=== PATIENT | male | born 1980 | race Caucasian/White ===

== ENCOUNTER 2022-09-30 15:33 | Inpatient (IN) | payer OTHER ==
[~2022-09-30] VITALS: Ht 172.7 cm; Wt 109.3 kg
[2022-09-30] MEDS ORDERED: DILT60TA PO (15:43)
[2022-09-30] MEDS ORDERED: HYDR12.55 PO (15:43)
[2022-09-30] MEDS ORDERED: OMEG10002 PO ×2 (15:43→22:20)
[2022-09-30 17:39] LABS: BLOOD UREA NITROGEN 21 MG/DL (9-23); CALCIUM LEVEL 9.8 MG/DL (8.5-10.1); CARBON DIOXIDE LEVEL 24 MMOL/L (20-31); CHLORIDE LEVEL 94 MMOL/L (98-107); CPK CREATINE PHOSPHOKINASE 1525 U/L (46-171); CREATININE FOR GFR 1.06 MG/DL (0.70-1.30); GLOMERULAR FILTRATION RATE > 60.0 (>60); GLUCOSE, FASTING 475 MG/DL (60-100); POTASSIUM SERUM 4.4 MMOL/L (3.5-5.1); SODIUM LEVEL 129 MMOL/L (136-145)
[2022-09-30] MEDS ORDERED: HumuLIN R (REGULAR) INSULIN (NovoLIN R) **100U/ML** PER UNIT IV ONE (17:40)
[2022-09-30] MEDS ORDERED: NS 1,000 ML IV ONE (17:40)
[2022-09-30 18:17] LABS: VENOUS HCO3 24.4 MEQ/L (23.0-27.0); VENOUS O2 SATURATION 97.4 % (60.0-80.0); VENOUS PARTIAL PRESSURE CO2 38.9 mmHg (38.0-50.0); VENOUS PARTIAL PRESSURE O2 97.2 mmHg (30.0-50.0); VENOUS PH 7.415 UNITS (7.330-7.430); VENOUS STANDARD HCO3 24.5 MEQ/L; VENOUS TOTAL CO2 25.6 MEQ/L (24.0-28.0)
[2022-09-30 18:26] LABS: BASO % 0.4 % (0.0-1.0); EOS # 0.1 10^3/uL (0.0-0.5); EOS % 1.8 % (0.0-3.0); HEMATOCRIT 46.7 % (42.0-52.0); HEMOGLOBIN 16.7 g/dl (13.5-17.5); LYMPH # 2.6 10^3/uL (1.5-5.0); LYMPH % 33.2 % (24.0-44.0); MEAN CORPUSCULAR HEMOGLOBIN 31.9 pg (27.0-33.0); MEAN CORPUSCULAR HGB CONC 35.8 g/dl (32.0-36.5); MEAN CORPUSCULAR VOLUME 89.1 fl (80.0-96.0); MONO # 0.4 10^3/uL (0.0-0.8); MONO % 5.6 % (2.0-8.0); NEUTROPHILS # 4.5 10^3/uL (1.5-8.5); NEUTROPHILS % 58.4 % (36.0-66.0); PLATELET COUNT, AUTOMATED 244 10^3/uL (150-450); RED BLOOD COUNT 5.24 10^6/uL (4.30-6.10); WHITE BLOOD COUNT 7.7 10^3/uL (4.0-10.0)
[2022-09-30] MEDS ORDERED: SODIUM CHLORIDE IV ONE (18:45)
[2022-09-30] MEDS ORDERED: ONDANSETRON 4MG 2ML VIAL IV ONE (18:45)
[2022-09-30] MEDS ORDERED: MORPHINE 4 MG/ML 1ML VIAL IV ONE (18:45)
[2022-09-30] MEDS ORDERED: ISOVUE-370 76% 100ML VIAL As Ordered ONE (18:52)
[2022-09-30 18:57] LABS: OSMOLALITY SERUM 309 MOSM/KG (275-295)
[2022-09-30 19:24] LABS: BILIRUBIN,DIRECT < 0.1 MG/DL (<0.4)
[2022-09-30 19:45] LABS: ALBUMIN 4.3 G/DL (3.2-5.2); ALKALINE PHOSPHATASE 99 U/L (46-116); ALT/SGPT 196 U/L (7.0-40); AST/SGOT 182 U/L (<34); BILIRUBIN,TOTAL 0.6 MG/DL (0.3-1.2); LIPASE 79 U/L (12-53); PHOSPHORUS LEVEL 3.8 MG/DL (2.5-4.9); TOTAL PROTEIN 7.9 G/DL (5.7-8.2)
[2022-09-30 20:13] LABS: HEMOGLOBIN A1c 8.2 % (4.0-6.0)
[2022-09-30 20:13] LABS: MB/CK RELATIVE INDEX 0.26 (< OR =4)
[2022-09-30] MEDS: INSULIN LISPRO (NovoLOG) PER UNIT SC SCH (21:00)
[2022-09-30] MEDS ORDERED: DILT1CAP3 PO (22:20)
[2022-09-30] MEDS ORDERED: HOME MED LIST COMPLETE! XX SCH (22:20)
[2022-09-30] MEDS ORDERED: BENG1CRE EXT (22:20)
[2022-09-30] MEDS ORDERED: DICL75TA PO (22:20)
[2022-09-30] MEDS ORDERED: HYDR-3490 PO (22:20)
[2022-09-30] MEDS ORDERED: UREA20CR4 EXT (22:20)
[2022-09-30] MEDS ORDERED: AMMO12CR7 TOP (22:20)
[2022-09-30 23:04] LABS: INR 0.94; PROTHROMBIN TIME 12.8 SECONDS (12.5-14.5)
[2022-09-30 23:09] LABS: PARTIAL THROMBOPLASTIN TIME 26.9 SECONDS (24.8-34.2)
[2022-09-30 23:35] LABS: CK-MB VALUE MASS 3.7 NG/ML (<3.6)
[2022-09-30 23:36] LABS: RSV AMPLIFICATION NEGATIVE (NEGATIVE)
[2022-09-30] MEDS ORDERED: DEXTROSE 50% 50 ML SYRINGE IV PRN (23:40)
[2022-09-30] MEDS ORDERED: GLUCOSE 4GM CHEW TABLET PO PRN (23:40)
[2022-09-30] MEDS ORDERED: GLUCAGON INJ 1MG VIAL SC PRN (23:40)
[2022-09-30 23:48] LABS: MB/CK RELATIVE INDEX 0.27 (< OR =4)
[2022-10-01] MEDS ORDERED: NS 1,000 ML IV SCH (02:20)
[2022-10-01 05:16] LABS: AMPHETAMINES LEVEL URINE NEGATIVE (NEGATIVE); BARBITURATES URINE NEGATIVE (NEGATIVE); BENZODIAZEPINES URINE NEGATIVE (NEGATIVE); COCAINE METABOLITE URINE NEGATIVE (NEGATIVE); METHADONE URINE NEGATIVE (NEGATIVE); OPIATES URINE NEGATIVE (NEGATIVE); PHENCYCLIDINE URINE NEGATIVE (NEGATIVE)
[2022-10-01 05:17] LABS: CANNABINOIDS URINE NEGATIVE (NEGATIVE)
[2022-10-01 09:31] LABS: MAGNESIUM LEVEL 1.8 MG/DL (1.8-2.4)
[2022-10-01 09:33] LABS: FREE T4 1.26 NG/DL (0.89-1.76)
[2022-10-01] MEDS: HEPARIN SOD (PORCINE) 5000UNITS/ML 1ML VIAL/SYRINGE SQ SCH ×3 (09:49→21:30)
[2022-10-01 09:57] LABS: ALBUMIN 3.5 G/DL (3.2-5.2); ALKALINE PHOSPHATASE 84 U/L (46-116); ALT/SGPT 167 U/L (7.0-40); AST/SGOT 146 U/L (<34); BILIRUBIN,TOTAL 0.5 MG/DL (0.3-1.2); BLOOD UREA NITROGEN 14 MG/DL (9-23); CALCIUM LEVEL 8.8 MG/DL (8.5-10.1); CARBON DIOXIDE LEVEL 25 MMOL/L (20-31); CHLORIDE LEVEL 102 MMOL/L (98-107); CHOLESTEROL LEVEL 247 MG/DL (<200); CHOLESTEROL RISK RATIO 12.41 (<5); CPK CREATINE PHOSPHOKINASE 1230 U/L (46-171); CREATININE FOR GFR 0.82 MG/DL (0.70-1.30); GLOMERULAR FILTRATION RATE > 60.0 (>60); GLUCOSE, FASTING 239 MG/DL (60-100); HDL CHOLESTEROL 19.9 MG/DL (>40); NON-HDL-C 227 MG/DL; POTASSIUM SERUM 4.2 MMOL/L (3.5-5.1); SODIUM LEVEL 136 MMOL/L (136-145); TOTAL PROTEIN 6.3 G/DL (5.7-8.2); TRIGLYCERIDES LEVEL 974 MG/DL (<150)
[2022-10-01] MEDS: INSULIN LISPRO (NovoLOG) PER UNIT SC SCH ×4 (10:06→21:31)
[2022-10-01] MEDS: LEVEMIR (INSULIN DETEMIR) 1 UNITS/0.01ML SC SCH (13:00)
[2022-10-01 17:22] VITALS: BP 159/78
[2022-10-01] MEDS: lisinopriL 5 MG TAB PO SCH (17:50)
[2022-10-01] MEDS: NS 1,000 ML IV SCH (18:05)
[2022-10-01 21:00] VITALS: BP 150/78
[2022-10-02] MEDS: NS 1,000 ML IV SCH ×3 (02:06→16:55)
[2022-10-02 05:40] VITALS: BP 149/77
[2022-10-02] MEDS: HEPARIN SOD (PORCINE) 5000UNITS/ML 1ML VIAL/SYRINGE SQ SCH ×2 (05:44→14:00)
[2022-10-02 06:46] LABS: BASO % 0.2 % (0.0-1.0); EOS # 0.2 10^3/uL (0.0-0.5); EOS % 3.3 % (0.0-3.0); HEMATOCRIT 40.4 % (42.0-52.0); LYMPH # 1.9 10^3/uL (1.5-5.0); MEAN CORPUSCULAR HEMOGLOBIN 30.9 pg (27.0-33.0); MEAN CORPUSCULAR HGB CONC 34.2 g/dl (32.0-36.5); MEAN CORPUSCULAR VOLUME 90.6 fl (80.0-96.0); MONO # 0.4 10^3/uL (0.0-0.8); MONO % 7.1 % (2.0-8.0); NEUTROPHILS # 2.5 10^3/uL (1.5-8.5); PLATELET COUNT, AUTOMATED 166 10^3/uL (150-450); RED BLOOD COUNT 4.46 10^6/uL (4.30-6.10); WHITE BLOOD COUNT 4.9 10^3/uL (4.0-10.0)
[2022-10-02 06:52] LABS: HEMOGLOBIN 13.8 g/dl (13.5-17.5)
[2022-10-02 08:05] LABS: ALBUMIN 3.4 G/DL (3.2-5.2); ALKALINE PHOSPHATASE 79 U/L (46-116); ALT/SGPT 174 U/L (7.0-40); AST/SGOT 131 U/L (<34); BILIRUBIN,TOTAL 0.4 MG/DL (0.3-1.2); BLOOD UREA NITROGEN 11 MG/DL (9-23); CALCIUM LEVEL 8.5 MG/DL (8.5-10.1); CARBON DIOXIDE LEVEL 23 MMOL/L (20-31); CHLORIDE LEVEL 105 MMOL/L (98-107); CPK CREATINE PHOSPHOKINASE 865 U/L (46-171); CREATININE FOR GFR 0.78 MG/DL (0.70-1.30); GLOMERULAR FILTRATION RATE > 60.0 (>60); GLUCOSE, FASTING 239 MG/DL (60-100); POTASSIUM SERUM 4.3 MMOL/L (3.5-5.1); SODIUM LEVEL 136 MMOL/L (136-145); TOTAL PROTEIN 5.9 G/DL (5.7-8.2)
[2022-10-02 08:47] VITALS: BP 183/91
[2022-10-02] MEDS: lisinopriL 5 MG TAB PO SCH (08:47)
[2022-10-02 09:31] LABS: CHOLESTEROL LEVEL 228 MG/DL (<200); CHOLESTEROL RISK RATIO 11.17 (<5); HDL CHOLESTEROL 20.4 MG/DL (>40); NON-HDL-C 208 MG/DL; TRIGLYCERIDES LEVEL 999 MG/DL (<150)
[2022-10-02] MEDS: INSULIN LISPRO (NovoLOG) PER UNIT SC SCH ×3 (10:14→17:30)
[2022-10-02] MEDS: LEVEMIR (INSULIN DETEMIR) 1 UNITS/0.01ML SC SCH (10:15)
[2022-10-02] MEDS ORDERED: GLIP10TA PO ×2 (10:18→12:36)
[2022-10-02] MEDS ORDERED: GLUC1TES2 XX ×2 (10:18→12:36)
[2022-10-02] MEDS ORDERED: LANC30MI XX ×2 (10:18→12:36)
[2022-10-02] MEDS ORDERED: METF500T13 PO (10:18)
[2022-10-02] MEDS ORDERED: BLOOKIT21 XX ×2 (10:18→12:36)
[2022-10-02] MEDS ORDERED: ALCOPAD25 TOP ×2 (10:18→12:36)
[2022-10-02] MEDS ORDERED: glipiZIDE (GLUCOTROL) 5 MG TAB PO SCH (11:55)
[2022-10-02 12:10] VITALS: BP 143/80
[2022-10-02] MEDS: metFORMIN (GLUCOPHAGE) 500MG TAB PO SCH ×2 (12:29→17:50)
[2022-10-02] MEDS ORDERED: METF-839 PO (12:36)
[2022-10-02] MEDS ORDERED: GLIP5TAB8 PO (14:31)
== END 2022-10-02 17:52 | disposition home or self-care (01) | DRG 558 ==
LOC: M ED 15:33 → M ED INP 10-01 00:38 → ENRESERV 10-01 15:20 → M MSPAV 10-01 17:20
PROVIDERS: ADMIT Internal Medicine; ATTEND Internal Medicine
DX: M62.82 Rhabdomyolysis (principal); E87.1 Hypo-osmolality and hyponatremia; E66.9 Obesity, unspecified; F43.10 Post-traumatic stress disorder, unspecified; I10 Essential (primary) hypertension; G47.33 Obstructive sleep apnea (adult) (pediatric); Z87.891 Personal history of nicotine dependence; Z91.82 Personal history of military deployment; E11.65 Type 2 diabetes mellitus with hyperglycemia; R74.01 Elevation of levels of liver transaminase levels; E78.5 Hyperlipidemia, unspecified; Z68.36 Body mass index [BMI] 36.0-36.9, adult; Z20.822 Contact with and (suspected) exposure to COVID-19; Z79.899 Other long term (current) drug therapy; E86.0 Dehydration; K75.81 Nonalcoholic steatohepatitis (NASH)